=== PATIENT | male | born 1955 | race Caucasian/White ===

== ENCOUNTER 2023-03-22 09:26 | Inpatient (IN) | payer MEDICARE, OTHER ==
[2023-03-22] VITALS (51 sets, daily range): BP systolic 78–170; BP diastolic 58–101; PULSE 56–101; RESP 12–24; TEMP 95.4–100.6; O2SAT 90–99
[~2023-03-22] VITALS: Ht 175.3 cm; Wt 48.6 kg
[2023-03-22] MEDS ORDERED: PROPOFOL 100 ML IV ONE (09:33)
[2023-03-22] MEDS ORDERED: SODIUM CHLORIDE 0.9% 1,200 ML IV ONE (10:00)
[2023-03-22] MEDS ORDERED: ROCURONIUM 10MG/ML 10ML VIAL IV ONE (10:00)
[2023-03-22] MEDS ORDERED: PIPERACILLIN-TAZO 4.5GM 100 ML IV ONE (10:00)
[2023-03-22] MEDS ORDERED: ETOMIDATE (2MG/ML) 20ML VIAL IV ONE (10:00)
[2023-03-22] MEDS ORDERED: VANCOMYCIN 1GM/250ML 250 ML IV ONE (10:00)
[2023-03-22 10:43] LABS: Eosinophils # (auto) 0 10 ^3/uL (0-0.8); Hemoglobin 12.1 g/dL (13.5-17.5); Lymphocytes # (auto) 0.2 10 ^3/uL (0.4-5.4)
[2023-03-22 10:45] LABS: Basophils # (auto) 0.2 10 ^3/uL (0-0.2); Basophils % (auto) 0.9 % (0.0-2.0); Eosinophils % (auto) 0.1 % (0.0-7.0); Mean Corpuscular Hemoglobin 28.8 pg (28.0-32.0); Mean Corpuscular Hgb Conc. 31.9 g/dL (32.0-36.0); Mean Corpuscular Volume 90.4 fL (80.0-100.0); Monocytes # (auto) 1.2 10 ^3/uL (0-1.3); Monocytes % (auto) 5.6 % (0.0-12.0); Neutrophils # (auto) 20.6 10 ^3/uL (1.6-8.6); Neutrophils % (auto) 92.4 % (37.0-80.0); Red Blood Cells 4.21 10^6/uL (4.5-5.90); Red Cell Distribution Width 13.9 % (11.8-14.3); White Blood Cell 22.2 10^3/uL (4.4-10.8)
[2023-03-22] MEDS ORDERED: ONDANSETRON HCL 4 MG/2 ML VIAL IV PRN (10:45)
[2023-03-22] MEDS ORDERED: SODIUM CHLORIDE 0.9% 1,000 ML IV SCH (10:45)
[2023-03-22] MEDS ORDERED: DEXTROSE (50%) 50ML SYRG IV PRN (10:45)
[2023-03-22] MEDS: D5W/SOD CHL 0.2% 1,000 ML IV SCH (10:45)
[2023-03-22 10:49] LABS: Urine Bacteria MOD /hpf (None Seen); Urine Blood 1+ /uL (Negative); Urine Clarity HAZY (Clear); Urine Color Yellow (Yellow); Urine Protein, UAD 1+ (Negative); Urine Specific Gravity 1.017 (1.001-1.035); Urine Urobilinogen Normal (Negative); Urine WBC 20 /hpf (0 - 3)
[2023-03-22] MEDS: ACCU-CHEK COMFORT CURVE STRIP VI SCH ×12 (11:02→22:10)
[2023-03-22] MEDS: ENOXAPARIN SOD 30 MG/0.3 ML SYRINGE SC SCH (11:11)
[2023-03-22] MEDS: PROPOFOL 100 ML IV SCH (11:15)
[2023-03-22 11:21] LABS: Base Excess 16.9 mmol/L (-2.0-2.0)
[2023-03-22 11:45] LABS: Amphetamine Screen, Urine Neg (NEGATIVE); Barbiturate Scree,Urine Neg (NEGATIVE); Benzodiazephine Screen, Urine Neg (NEGATIVE); Cannabinoid Screen, Urine Pos (NEGATIVE); Cocaine Screen, Urine Neg (NEGATIVE); Opiate Scree,Urine Neg (NEGATIVE); Phencyclidine Screen, Urine Neg (NEGATIVE)
[2023-03-22] MEDS ORDERED: IPRATROPIUM BROM 0.5 MG/2.5ML INH SOL NEB SCH (12:00)
[2023-03-22] MEDS ORDERED: DexAMETHasone SOD PHOS 4 MG/1ML SDV INJ IV SCH (12:00)
[2023-03-22 12:05] LABS: Lactic Acid w/Reflex 4.3 mmol/L (0.4-2.0)
[2023-03-22] MEDS: NOREPINEPHRINE 8 MG/250ML KIT 250 ML IV SCH (13:00)
[2023-03-22 13:01] LABS: INR 1.13 (0.9-1.15); Prothrombin Time 11.8 sec (9.3-11.8)
[2023-03-22] MEDS ORDERED: NOREPINEPHRINE 8 MG/250ML KIT 250 ML IV ONE (13:04)
[2023-03-22 13:23] LABS: Alanine Aminotransferase 522 U/L (7-40); Albumin 3.8 g/dL (3.2-4.8); Alkaline Phosphatase 99 U/L (46-116); Aspartate Aminotransferase 927 U/L (13-40); BUN/Creatinine Ratio 34.1 (10.0-20.0); Bilirubin, Total 1.3 mg/dL (0.2-1.0); Blood Urea Nitrogen 15 mg/dL (9-23); Calcium 9.3 mg/dL (8.5-10.1); Chloride 88 mmol/L (98-107); Glucose 118 mg/dL (74-106); Potassium 5.3 mmol/L (3.5-5.1); Sodium 139 mmol/L (136-145); Total Protein 6.9 g/dL (5.7-8.2)
[2023-03-22 13:35] LABS: Anion Gap 10.99999 (5-15)
[2023-03-22] MEDS: IPRATROPIUM BROM 0.5 MG/2.5ML INH SOL NEB SCH ×4 (13:45→22:08)
[2023-03-22 13:51] LABS: Carbon Dioxide > 40 mmol/L (20-30)
[2023-03-22] MEDS: methylPREDNISolone SOD SUCC 125 MG/2 ML VL IV SCH ×2 (14:00→21:06)
[2023-03-22] MEDS: fentaNYL Drip 2500mCg/250mlNS 250 ML IV SCH (14:12)
[2023-03-22] MEDS: MIDAZOLAM DRIP 50 mg/50mL 50 ML IV SCH ×2 (14:12→22:46)
[2023-03-22 14:21] LABS: Alanine Aminotransferase 487 U/L (7-40); Albumin 3.1 g/dL (3.2-4.8); Alkaline Phosphatase 80 U/L (46-116); Aspartate Aminotransferase 761 U/L (13-40); Bilirubin, Total 0.9 mg/dL (0.2-1.0); Blood Urea Nitrogen 18 mg/dL (9-23); Chloride 90 mmol/L (98-107); Glucose 152 mg/dL (74-106); Potassium 4.6 mmol/L (3.5-5.1); Sodium 138 mmol/L (136-145); Total Protein 5.6 g/dL (5.7-8.2)
[2023-03-22 14:26] LABS: Anion Gap 7.99999 (5-15); Carbon Dioxide > 40.0 mmol/L (20-30)
[2023-03-22] MEDS: ALBUTEROL SULF 2.5 MG/0.5ML(0.5%) NEB SOLN NEB SCH ×3 (14:33→22:08)
[2023-03-22 15:07] LABS: Base Excess 22.7 mmol/L (-2.0-2.0)
[2023-03-22] MEDS: PIPERACILLIN-TAZOB 3.375GM 100 ML IV SCH (18:29)
[2023-03-23] VITALS (105 sets, daily range): BP systolic 109–167; BP diastolic 67–104; PULSE 62–111; RESP 20–25; TEMP 96.8–99.5; O2SAT 90–99
[2023-03-23] MEDS: D5W/SOD CHL 0.2% 1,000 ML IV SCH ×2 (00:05→14:55)
[2023-03-23] MEDS: ACCU-CHEK COMFORT CURVE STRIP VI SCH ×10 (00:11→21:17)
[2023-03-23] MEDS: PIPERACILLIN-TAZOB 3.375GM 100 ML IV SCH ×3 (01:57→18:34)
[2023-03-23] MEDS: IPRATROPIUM BROM 0.5 MG/2.5ML INH SOL NEB SCH ×6 (02:37→22:17)
[2023-03-23] MEDS: ALBUTEROL SULF 2.5 MG/0.5ML(0.5%) NEB SOLN NEB SCH ×6 (02:37→22:17)
[2023-03-23 04:29] LABS: Hematocrit 37.1 % (41.0-53.0); Hemoglobin 11.9 g/dL (13.5-17.5); Mean Corpuscular Hgb Conc. 32.2 g/dL (32.0-36.0); Mean Corpuscular Volume 89.9 fL (80.0-100.0); Red Blood Cells 4.12 10^6/uL (4.5-5.90); Red Cell Distribution Width 13.9 % (11.8-14.3); White Blood Cell 16.5 10^3/uL (4.4-10.8)
[2023-03-23 04:44] LABS: Basophils % (manual) 0 (0.0-2.0); Blast Cells 0; Eosinophils % (manual) 0 (0-7); Metamyelocytes % 0; Myelocytes % 0; Promyelocytes % 0; Reactive Lymphocytes 0
[2023-03-23 04:47] LABS: Alanine Aminotransferase 302 U/L (7-40); Albumin 3.4 g/dL (3.2-4.8); Alkaline Phosphatase 74 U/L (46-116); Aspartate Aminotransferase 379 U/L (13-40); BUN/Creatinine Ratio 33.3 (10.0-20.0); Blood Urea Nitrogen 21 mg/dL (9-23); Calcium 9.3 mg/dL (8.7-10.4); Chloride 91 mmol/L (98-107); Glucose 124 mg/dL (74-106); Potassium 3.5 mmol/L (3.5-5.1); Sodium 137 mmol/L (136-145)
[2023-03-23 04:48] LABS: Bilirubin, Total 1.6 mg/dL (0.2-1.0)
[2023-03-23 04:54] LABS: Anion Gap 5.99999 (5-15)
[2023-03-23 04:56] LABS: Carbon Dioxide > 40.0 mmol/L (20-30)
[2023-03-23] MEDS: methylPREDNISolone SOD SUCC 125 MG/2 ML VL IV SCH ×3 (05:55→21:17)
[2023-03-23] MEDS ORDERED: DEXTROSE (50%) 50ML SYRG IV PRN (06:30)
[2023-03-23] MEDS: InsuLIN REG 1unit/0.01ml Soln (100units/ml) SC SCH ×4 (07:00→21:26)
[2023-03-23 07:51] LABS: Base Excess 17.2 mmol/L (-2.0-2.0)
[2023-03-23 08:14] LABS: Band Neutrophils % (manual) 1; Lymphocytes % (manual) 2 (10.0-50.0); Monocytes % (manual) 4 (0-12)
[2023-03-23 08:16] LABS: Platelet Estimate Adequate
[2023-03-23] MEDS: MIDAZOLAM DRIP 50 mg/50mL 50 ML IV SCH (10:55)
[2023-03-23] MEDS: ENOXAPARIN SOD 30 MG/0.3 ML SYRINGE SC SCH (10:58)
[2023-03-23] MEDS: PANTOPRAZOLE 40 MG/10 ML VIAL INJ IV SCH (10:59)
[2023-03-23] MEDS: PROPOFOL 100 ML IV SCH (11:15)
[2023-03-23] MEDS: NOREPINEPHRINE 8 MG/250ML KIT 250 ML IV SCH (13:00)
[2023-03-23] MEDS: fentaNYL Drip 2500mCg/250mlNS 250 ML IV SCH (14:00)
[2023-03-24] VITALS (111 sets, daily range): BP systolic 103–180; BP diastolic 64–107; PULSE 51–95; RESP 16–21; TEMP 96.8–99.7; O2SAT 91–100
[2023-03-24] MEDS: PIPERACILLIN-TAZOB 3.375GM 100 ML IV SCH ×3 (01:53→17:46)
[2023-03-24] MEDS: D5W/SOD CHL 0.2% 1,000 ML IV SCH ×2 (02:14→16:05)
[2023-03-24] MEDS: IPRATROPIUM BROM 0.5 MG/2.5ML INH SOL NEB SCH ×6 (02:18→22:21)
[2023-03-24] MEDS: ALBUTEROL SULF 2.5 MG/0.5ML(0.5%) NEB SOLN NEB SCH ×6 (02:18→22:21)
[2023-03-24 04:09] LABS: Basophils # (auto) 0 10 ^3/uL (0-0.2); Eosinophils # (auto) 0 10 ^3/uL (0-0.8); Hematocrit 32.2 % (41.0-53.0); Hemoglobin 10.6 g/dL (13.5-17.5); Lymphocytes # (auto) 0.2 10 ^3/uL (0.4-5.4); Lymphocytes % (auto) 1.1 % (10.0-50.0); Mean Corpuscular Hemoglobin 28.8 pg (28.0-32.0); Mean Corpuscular Volume 87.1 fL (80.0-100.0); Monocytes # (auto) 0.7 10 ^3/uL (0-1.3); Monocytes % (auto) 4.1 % (0.0-12.0); Neutrophils # (auto) 16.6 10 ^3/uL (1.6-8.6); Neutrophils % (auto) 94.8 % (37.0-80.0); Red Cell Distribution Width 13.9 % (11.8-14.3); White Blood Cell 17.5 10^3/uL (4.4-10.8)
[2023-03-24 04:11] LABS: Chloride 90 mmol/L (98-107); Sodium 135 mmol/L (136-145)
[2023-03-24 04:12] LABS: Calcium 9.4 mg/dL (8.7-10.4)
[2023-03-24 04:18] LABS: BUN/Creatinine Ratio 38.7 (10.0-20.0); Blood Urea Nitrogen 24 mg/dL (9-23); Glucose 135 mg/dL (74-106)
[2023-03-24 04:32] LABS: Anion Gap 4.99999 (5-15); Carbon Dioxide > 40.0 mmol/L (20-30); Potassium 2.9 mmol/L (3.5-5.1)
[2023-03-24] MEDS: ACCU-CHEK COMFORT CURVE STRIP VI SCH ×4 (06:03→21:47)
[2023-03-24] MEDS: POTASSIUM CHL 20MEQ/100ML 100 ML IV SCH ×5 (06:03→21:47)
[2023-03-24] MEDS: methylPREDNISolone SOD SUCC 125 MG/2 ML VL IV SCH ×3 (06:03→21:47)
[2023-03-24] MEDS: InsuLIN REG 1unit/0.01ml Soln (100units/ml) SC SCH ×4 (06:32→22:00)
[2023-03-24 08:19] LABS: Base Excess 16.3 mmol/L (-2.0-2.0)
[2023-03-24] MEDS: ENOXAPARIN SOD 30 MG/0.3 ML SYRINGE SC SCH (10:27)
[2023-03-24] MEDS: PANTOPRAZOLE 40 MG/10 ML VIAL INJ IV SCH (10:27)
[2023-03-24] MEDS: PROPOFOL 100 ML IV SCH (11:15)
[2023-03-24] MEDS: NOREPINEPHRINE 8 MG/250ML KIT 250 ML IV SCH (13:00)
[2023-03-24] MEDS: fentaNYL Drip 2500mCg/250mlNS 250 ML IV SCH (14:00)
[2023-03-24] MEDS: MIDAZOLAM DRIP 50 mg/50mL 50 ML IV SCH ×2 (14:11→21:47)
[2023-03-24 16:16] LABS: Magnesium 1.8 mg/dL (1.6-2.6)
[2023-03-24] MEDS ORDERED: Jevity 1.2 Cal/Fiber 1 Liter GT SCH (19:15)
[2023-03-25] VITALS (103 sets, daily range): BP systolic 94–178; BP diastolic 64–109; PULSE 52–105; RESP 15–32; TEMP 97–99; O2SAT 91–100
[2023-03-25] MEDS: fentaNYL Drip 2500mCg/250mlNS 250 ML IV SCH (00:47)
[2023-03-25] MEDS: PIPERACILLIN-TAZOB 3.375GM 100 ML IV SCH ×3 (01:58→18:01)
[2023-03-25] MEDS: ALBUTEROL SULF 2.5 MG/0.5ML(0.5%) NEB SOLN NEB SCH ×6 (02:14→22:09)
[2023-03-25] MEDS: IPRATROPIUM BROM 0.5 MG/2.5ML INH SOL NEB SCH ×6 (02:14→22:08)
[2023-03-25 04:19] LABS: Calcium 9.3 mg/dL (8.7-10.4); Chloride 96 mmol/L (98-107); Potassium 3.3 mmol/L (3.5-5.1); Sodium 136 mmol/L (136-145)
[2023-03-25 04:24] LABS: BUN/Creatinine Ratio 31.4 (10.0-20.0); Blood Urea Nitrogen 16 mg/dL (9-23); Glucose 106 mg/dL (74-106)
[2023-03-25 04:45] LABS: Basophils # (auto) 0 10 ^3/uL (0-0.2); Basophils % (auto) 0.1 % (0.0-2.0); Eosinophils # (auto) 0 10 ^3/uL (0-0.8); Eosinophils % (auto) 0.1 % (0.0-7.0); Hematocrit 33.9 % (41.0-53.0); Hemoglobin 10.9 g/dL (13.5-17.5); Lymphocytes # (auto) 0.2 10 ^3/uL (0.4-5.4); Lymphocytes % (auto) 1.1 % (10.0-50.0); Mean Corpuscular Hemoglobin 27.9 pg (28.0-32.0); Mean Corpuscular Hgb Conc. 32.3 g/dL (32.0-36.0); Mean Corpuscular Volume 86.7 fL (80.0-100.0); Monocytes # (auto) 0.6 10 ^3/uL (0-1.3); Monocytes % (auto) 3.3 % (0.0-12.0); Neutrophils # (auto) 17.6 10 ^3/uL (1.6-8.6); Neutrophils % (auto) 95.4 % (37.0-80.0); Red Blood Cells 3.91 10^6/uL (4.5-5.90); Red Cell Distribution Width 13.9 % (11.8-14.3); White Blood Cell 18.4 10^3/uL (4.4-10.8)
[2023-03-25] MEDS: methylPREDNISolone SOD SUCC 125 MG/2 ML VL IV SCH (06:01)
[2023-03-25] MEDS: MIDAZOLAM DRIP 50 mg/50mL 50 ML IV SCH ×3 (06:02→20:17)
[2023-03-25] MEDS: ACCU-CHEK COMFORT CURVE STRIP VI SCH ×4 (06:02→22:24)
[2023-03-25] MEDS: InsuLIN REG 1unit/0.01ml Soln (100units/ml) SC SCH ×4 (06:19→22:00)
[2023-03-25 07:06] LABS: RPR Non Reactive (Non Reactive)
[2023-03-25 07:49] LABS: Base Excess 12.9 mmol/L (-2.0-2.0)
[2023-03-25] MEDS: PANTOPRAZOLE 40 MG/10 ML VIAL INJ IV SCH (10:14)
[2023-03-25] MEDS: ENOXAPARIN SOD 30 MG/0.3 ML SYRINGE SC SCH (10:14)
[2023-03-25] MEDS: POTASSIUM CHL 20MEQ/100ML 100 ML IV SCH ×2 (10:19→12:20)
[2023-03-25] MEDS: MAGNESIUM SULFATE 1GM/100ML 100 ML IV SCH ×2 (10:24→11:17)
[2023-03-25] MEDS ORDERED: HEPARIN DRIP/D5W 100UNITS/ML 250 ML IV SCH (10:30)
[2023-03-25] MEDS ORDERED: HEPARIN SODIUM (PORCINE) 5000 UNITS/ML 1ML VIAL IV ONE (10:30)
[2023-03-25] MEDS: PROPOFOL 100 ML IV SCH (11:15)
[2023-03-25 11:36] LABS: Hematocrit 34.8 % (41.0-53.0); Hemoglobin 11.2 g/dL (13.5-17.5); Mean Corpuscular Hemoglobin 28.3 pg (28.0-32.0); Mean Corpuscular Hgb Conc. 32.3 g/dL (32.0-36.0); Mean Corpuscular Volume 87.7 fL (80.0-100.0); Red Blood Cells 3.96 10^6/uL (4.5-5.90); White Blood Cell 18.4 10^3/uL (4.4-10.8)
[2023-03-25 11:44] LABS: INR 1.09 (0.9-1.15); Partial Thromboplastin Time 27.5 SEC (24.5-34.5); Prothrombin Time 11.4 sec (9.3-11.8)
[2023-03-25 12:14] LABS: Band Neutrophils % (manual) 0; Basophils % (manual) 0 (0.0-2.0); Eosinophils % (manual) 0 (0-7); Lymphocytes % (manual) 0 (10.0-50.0); Metamyelocytes % 0; Myelocytes % 0
[2023-03-25 12:15] LABS: Blast Cells 0; Promyelocytes % 0; Reactive Lymphocytes 0
[2023-03-25] MEDS: NOREPINEPHRINE 8 MG/250ML KIT 250 ML IV SCH (13:00)
[2023-03-25] MEDS ORDERED: ANGIOMAX 250 MG VIAL IV ONE (13:32)
[2023-03-25] MEDS ORDERED: SODIUM CHL 0.9% 0 ML ONE (13:33)
[2023-03-25] MEDS ORDERED: LIDOCAINE 2%HCL (LOCAL ANESTH.) INJ 20ML MDV ONE (13:37)
[2023-03-25] MEDS ORDERED: IODIXANOL 320MG/ML 100ML BTL IV ONE (13:37)
[2023-03-25] MEDS ORDERED: hydrALAZINE HCL 20 MG/ML VL ONE (14:32)
[2023-03-25 14:43] LABS: Monocytes % (manual) 4 (0-12); Platelet Estimate Adequate
[2023-03-25] MEDS: methylPREDNISolone SOD SUCC 40 MG/ML VL IV SCH (22:23)
[2023-03-26] VITALS (108 sets, daily range): BP systolic 86–162; BP diastolic 53–98; PULSE 58–122; RESP 8–26; TEMP 97.2–99.3; O2SAT 90–100
[2023-03-26] MEDS: PIPERACILLIN-TAZOB 3.375GM 100 ML IV SCH ×3 (01:36→17:57)
[2023-03-26] MEDS: IPRATROPIUM BROM 0.5 MG/2.5ML INH SOL NEB SCH ×6 (02:13→23:48)
[2023-03-26] MEDS: ALBUTEROL SULF 2.5 MG/0.5ML(0.5%) NEB SOLN NEB SCH ×6 (02:13→23:48)
[2023-03-26] MEDS: MIDAZOLAM DRIP 50 mg/50mL 50 ML IV SCH ×2 (04:05→18:30)
[2023-03-26] MEDS: fentaNYL Drip 2500mCg/250mlNS 250 ML IV SCH (04:08)
[2023-03-26 04:13] LABS: Hematocrit 34.2 % (41.0-53.0); Hemoglobin 11.1 g/dL (13.5-17.5); Mean Corpuscular Hemoglobin 28.5 pg (28.0-32.0); Mean Corpuscular Hgb Conc. 32.5 g/dL (32.0-36.0); Mean Corpuscular Volume 87.6 fL (80.0-100.0); Red Cell Distribution Width 14.4 % (11.8-14.3); White Blood Cell 17.6 10^3/uL (4.4-10.8)
[2023-03-26 04:26] LABS: Chloride 98 mmol/L (98-107); Potassium 3.5 mmol/L (3.5-5.1); Sodium 137 mmol/L (136-145)
[2023-03-26 04:27] LABS: Anion Gap 3.5 (5-15); Carbon Dioxide 35.5 mmol/L (20-30)
[2023-03-26 04:28] LABS: Calcium 9.2 mg/dL (8.7-10.4)
[2023-03-26 04:30] LABS: Basophils % (manual) 0 (0.0-2.0); Blast Cells 0; Eosinophils % (manual) 0 (0-7); Metamyelocytes % 0; Myelocytes % 0; Promyelocytes % 0; Reactive Lymphocytes 0
[2023-03-26 04:32] LABS: BUN/Creatinine Ratio 36.5 (10.0-20.0); Blood Urea Nitrogen 19 mg/dL (9-23); Glucose 102 mg/dL (74-106)
[2023-03-26 05:54] LABS: Band Neutrophils % (manual) 3; Lymphocytes % (manual) 3 (10.0-50.0); Monocytes % (manual) 2 (0-12)
[2023-03-26 05:56] LABS: Platelet Estimate Adequate
[2023-03-26] MEDS: ACCU-CHEK COMFORT CURVE STRIP VI SCH ×4 (06:08→22:22)
[2023-03-26] MEDS: InsuLIN REG 1unit/0.01ml Soln (100units/ml) SC SCH ×4 (06:08→22:00)
[2023-03-26 08:22] LABS: Base Excess 9.9 mmol/L (-2.0-2.0)
[2023-03-26] MEDS: PANTOPRAZOLE 40 MG/10 ML VIAL INJ IV SCH (09:43)
[2023-03-26] MEDS: methylPREDNISolone SOD SUCC 40 MG/ML VL IV SCH ×2 (09:43→22:21)
[2023-03-26] MEDS: PROPOFOL 100 ML IV SCH (11:15)
[2023-03-26 12:33] LABS: Base Excess 9.7 mmol/L (-2.0-2.0)
[2023-03-26] MEDS: NOREPINEPHRINE 8 MG/250ML KIT 250 ML IV SCH (13:00)
[2023-03-26] MEDS: hydrALAZINE HCL 20 MG/ML VL IV PRN (13:52)
[2023-03-27] VITALS (94 sets, daily range): BP systolic 78–176; BP diastolic 53–131; PULSE 54–120; RESP 10–28; TEMP 97–98.8; O2SAT 87–100
[2023-03-27] MEDS: ALBUTEROL SULF 2.5 MG/0.5ML(0.5%) NEB SOLN NEB SCH ×6 (01:55→22:11)
[2023-03-27] MEDS: IPRATROPIUM BROM 0.5 MG/2.5ML INH SOL NEB SCH ×6 (01:55→22:11)
[2023-03-27] MEDS: PIPERACILLIN-TAZOB 3.375GM 100 ML IV SCH ×2 (02:24→09:27)
[2023-03-27 04:49] LABS: Hematocrit 35.9 % (41.0-53.0); Hemoglobin 11.3 g/dL (13.5-17.5); Mean Corpuscular Hemoglobin 27.7 pg (28.0-32.0); Mean Corpuscular Hgb Conc. 31.6 g/dL (32.0-36.0); Mean Corpuscular Volume 87.8 fL (80.0-100.0); Red Blood Cells 4.09 10^6/uL (4.5-5.90); Red Cell Distribution Width 14.2 % (11.8-14.3); White Blood Cell 20.8 10^3/uL (4.4-10.8)
[2023-03-27 04:51] LABS: Chloride 98 mmol/L (98-107); Potassium 3.4 mmol/L (3.5-5.1); Sodium 138 mmol/L (136-145)
[2023-03-27 04:52] LABS: Anion Gap 4.1 (5-15); Carbon Dioxide 35.9 mmol/L (20-30)
[2023-03-27 04:53] LABS: Calcium 9.1 mg/dL (8.7-10.4)
[2023-03-27 04:57] LABS: Glucose 110 mg/dL (74-106)
[2023-03-27 04:58] LABS: BUN/Creatinine Ratio 16.9 (10.0-20.0); Blood Urea Nitrogen 23 mg/dL (9-23)
[2023-03-27 05:15] LABS: Basophils % (manual) 0 (0.0-2.0); Blast Cells 0; Eosinophils % (manual) 0 (0-7); Metamyelocytes % 0; Myelocytes % 0; Promyelocytes % 0; Reactive Lymphocytes 0
[2023-03-27] MEDS: ACCU-CHEK COMFORT CURVE STRIP VI SCH ×4 (06:14→22:42)
[2023-03-27] MEDS: InsuLIN REG 1unit/0.01ml Soln (100units/ml) SC SCH ×4 (06:14→22:30)
[2023-03-27] MEDS: hydrALAZINE HCL 20 MG/ML VL IV PRN ×2 (07:37→14:53)
[2023-03-27 08:23] LABS: Band Neutrophils % (manual) 3; Lymphocytes % (manual) 2 (10.0-50.0); Monocytes % (manual) 4 (0-12); Platelet Estimate Adequate
[2023-03-27 08:27] LABS: Base Excess 6.8 mmol/L (-2.0-2.0)
[2023-03-27] MEDS: methylPREDNISolone SOD SUCC 40 MG/ML VL IV SCH (09:21)
[2023-03-27] MEDS: PANTOPRAZOLE 40 MG/10 ML VIAL INJ IV SCH (09:30)
[2023-03-27] MEDS: ENOXAPARIN SOD 30 MG/0.3 ML SYRINGE SC SCH (09:44)
[2023-03-27] MEDS: METOPROLOL TARTRATE 25 MG TAB GT SCH ×3 (09:45→22:34)
[2023-03-27] MEDS: POTASSIUM CHL 20MEQ/100ML 100 ML IV SCH ×2 (09:45→14:56)
[2023-03-27 10:00] LABS: Base Excess 7.5 mmol/L (-2.0-2.0)
[2023-03-27] MEDS: PROPOFOL 100 ML IV SCH (11:15)
[2023-03-27] MEDS: NOREPINEPHRINE 8 MG/250ML KIT 250 ML IV SCH (13:00)
[2023-03-27] MEDS: fentaNYL Drip 2500mCg/250mlNS 250 ML IV SCH (14:00)
[2023-03-27] MEDS ORDERED: POTASSIUM CHL 20MEQ/100ML 100 ML IV ONE (15:00)
[2023-03-27] MEDS ORDERED: cefTRIAXone 1GM/50ML D5W 50 ML IV ONE (15:00)
[2023-03-28] VITALS (49 sets, daily range): BP systolic 109–171; BP diastolic 59–85; PULSE 53–93; RESP 8–31; TEMP 97.5–98.4; O2SAT 91–100
[2023-03-28] MEDS: ALBUTEROL SULF 2.5 MG/0.5ML(0.5%) NEB SOLN NEB SCH ×6 (02:13→22:38)
[2023-03-28] MEDS: IPRATROPIUM BROM 0.5 MG/2.5ML INH SOL NEB SCH ×6 (02:14→22:38)
[2023-03-28 04:52] LABS: Hematocrit 36.2 % (41.0-53.0); Hemoglobin 11.6 g/dL (13.5-17.5); Mean Corpuscular Hemoglobin 28.5 pg (28.0-32.0); Mean Corpuscular Hgb Conc. 32.1 g/dL (32.0-36.0); Mean Corpuscular Volume 88.9 fL (80.0-100.0); Red Blood Cells 4.07 10^6/uL (4.5-5.90); Red Cell Distribution Width 14.2 % (11.8-14.3); White Blood Cell 26.8 10^3/uL (4.4-10.8)
[2023-03-28 05:00] LABS: Band Neutrophils % (manual) 0; Basophils % (manual) 0 (0.0-2.0); Blast Cells 0; Eosinophils % (manual) 0 (0-7); Metamyelocytes % 0; Myelocytes % 0; Promyelocytes % 0; Reactive Lymphocytes 0
[2023-03-28 05:29] LABS: Chloride 101 mmol/L (98-107); Potassium 3.8 mmol/L (3.5-5.1); Sodium 140 mmol/L (136-145)
[2023-03-28 05:30] LABS: Anion Gap 2.3 (5-15); Calcium 9.1 mg/dL (8.5-10.1); Carbon Dioxide 36.7 mmol/L (20-30)
[2023-03-28 05:35] LABS: Blood Urea Nitrogen 25 mg/dL (9-23); Glucose 79 mg/dL (74-106)
[2023-03-28] MEDS: ACCU-CHEK COMFORT CURVE STRIP VI SCH ×2 (06:55→08:44)
[2023-03-28] MEDS: InsuLIN REG 1unit/0.01ml Soln (100units/ml) SC SCH (06:55)
[2023-03-28] MEDS: PROPOFOL 100 ML IV SCH (08:35)
[2023-03-28] MEDS: NOREPINEPHRINE 8 MG/250ML KIT 250 ML IV SCH (08:35)
[2023-03-28] MEDS: MIDAZOLAM DRIP 50 mg/50mL 50 ML IV SCH (08:35)
[2023-03-28] MEDS: fentaNYL Drip 2500mCg/250mlNS 250 ML IV SCH (08:35)
[2023-03-28] MEDS: ENOXAPARIN SOD 30 MG/0.3 ML SYRINGE SC SCH (08:42)
[2023-03-28] MEDS: cefTRIAXone 1GM/50ML D5W 50 ML IV SCH (08:43)
[2023-03-28] MEDS: PANTOPRAZOLE 40 MG/10 ML VIAL INJ IV SCH (08:43)
[2023-03-28] MEDS: methylPREDNISolone SOD SUCC 40 MG/ML VL IV SCH (08:43)
[2023-03-28] MEDS: METOPROLOL TARTRATE 25 MG TAB GT SCH (08:44)
[2023-03-28] MEDS: LOSARTAN POTASSIUM 50 MG TAB PO SCH (09:47)
[2023-03-28] MEDS: NICOTINE 14 MG/24HR TOPICAL PATCH TD SCH (09:51)
[2023-03-28] MEDS ORDERED: DOCUSATE SOD 100 MG CAP PO PRN (10:00)
[2023-03-28 10:22] LABS: Lymphocytes % (manual) 6 (10.0-50.0); Monocytes % (manual) 8 (0-12)
[2023-03-28 10:23] LABS: Platelet Estimate Adequate
[2023-03-29] VITALS (31 sets, daily range): BP systolic 127–183; BP diastolic 73–113; PULSE 65–114; RESP 17–34; TEMP 98–98.9; O2SAT 92–100
[2023-03-29] MEDS: ALBUTEROL SULF 2.5 MG/0.5ML(0.5%) NEB SOLN NEB SCH ×6 (02:16→21:52)
[2023-03-29] MEDS: IPRATROPIUM BROM 0.5 MG/2.5ML INH SOL NEB SCH ×6 (02:16→21:52)
[2023-03-29 05:33] LABS: Chloride 100 mmol/L (98-107); Potassium 4.5 mmol/L (3.5-5.1); Sodium 139 mmol/L (136-145)
[2023-03-29 05:34] LABS: Anion Gap 0.7 (5-15); Calcium 8.7 mg/dL (8.5-10.1); Carbon Dioxide 38.3 mmol/L (20-30)
[2023-03-29 05:35] LABS: Hematocrit 36.6 % (41.0-53.0); Hemoglobin 11.7 g/dL (13.5-17.5); Mean Corpuscular Hemoglobin 28.2 pg (28.0-32.0); Mean Corpuscular Hgb Conc. 31.9 g/dL (32.0-36.0); Mean Corpuscular Volume 88.4 fL (80.0-100.0); Red Blood Cells 4.14 10^6/uL (4.5-5.90); Red Cell Distribution Width 14.2 % (11.8-14.3); White Blood Cell 27.7 10^3/uL (4.4-10.8)
[2023-03-29 05:39] LABS: BUN/Creatinine Ratio 39.7 (10.0-20.0); Blood Urea Nitrogen 23 mg/dL (9-23); Glucose 96 mg/dL (74-106)
[2023-03-29 06:59] LABS: Band Neutrophils % (manual) 0
[2023-03-29 07:00] LABS: Basophils % (manual) 0 (0.0-2.0); Blast Cells 0; Myelocytes % 0; Promyelocytes % 0; Reactive Lymphocytes 0
[2023-03-29] MEDS: methylPREDNISolone SOD SUCC 40 MG/ML VL IV SCH (07:49)
[2023-03-29] MEDS: PANTOPRAZOLE 40 MG/10 ML VIAL INJ IV SCH (07:49)
[2023-03-29] MEDS: cefTRIAXone 1GM/50ML D5W 50 ML IV SCH (07:50)
[2023-03-29] MEDS: LOSARTAN POTASSIUM 50 MG TAB PO SCH (07:50)
[2023-03-29] MEDS: ENOXAPARIN SOD 30 MG/0.3 ML SYRINGE SC SCH (07:50)
[2023-03-29] MEDS: NICOTINE 14 MG/24HR TOPICAL PATCH TD SCH (09:45)
[2023-03-29 10:45] LABS: Eosinophils % (manual) 2 (0-7); Lymphocytes % (manual) 1 (10.0-50.0); Metamyelocytes % 1; Monocytes % (manual) 6 (0-12)
[2023-03-29 10:46] LABS: Platelet Estimate Adequate
[2023-03-29] MEDS: ALPRAZolam 0.25 MG TAB PO PRN (14:12)
[2023-03-29] MEDS: dilTIAZem HCL 60 MG TAB PO SCH ×2 (14:12→21:47)
[2023-03-30] VITALS (19 sets, daily range): BP systolic 100–168; BP diastolic 71–86; PULSE 61–106; RESP 16–18; TEMP 97.9–98.8; O2SAT 91–100
[2023-03-30] MEDS: ALBUTEROL SULF 2.5 MG/0.5ML(0.5%) NEB SOLN NEB SCH ×6 (01:55→22:10)
[2023-03-30] MEDS: IPRATROPIUM BROM 0.5 MG/2.5ML INH SOL NEB SCH ×6 (01:55→22:10)
[2023-03-30] MEDS: dilTIAZem HCL 60 MG TAB PO SCH ×3 (05:37→23:17)
[2023-03-30] MEDS: PANTOPRAZOLE 40 MG/10 ML VIAL INJ IV SCH (09:57)
[2023-03-30] MEDS: ENOXAPARIN SOD 30 MG/0.3 ML SYRINGE SC SCH (09:57)
[2023-03-30] MEDS: ALPRAZolam 0.25 MG TAB PO PRN (09:58)
[2023-03-30] MEDS: LOSARTAN POTASSIUM 50 MG TAB PO SCH (09:58)
[2023-03-30] MEDS: cefTRIAXone 1GM/50ML D5W 50 ML IV SCH (09:58)
[2023-03-30] MEDS: NICOTINE 14 MG/24HR TOPICAL PATCH TD SCH (09:58)
[2023-03-30] MEDS: methylPREDNISolone SOD SUCC 40 MG/ML VL IV SCH (09:59)
[2023-03-30] MEDS: Ensure Enlive Strawberry 8oz Bottle PO SCH (18:19)
[2023-03-30] MEDS: hydrALAZINE HCL 20 MG/ML VL IV PRN (23:17)
[2023-03-31] VITALS (16 sets, daily range): BP systolic 109–182; BP diastolic 62–83; PULSE 65–119; RESP 16–24; TEMP 97.9–98.8; O2SAT 93–100
[2023-03-31] MEDS: ALPRAZolam 0.25 MG TAB PO PRN ×2 (00:30→13:15)
[2023-03-31] MEDS ORDERED: ACETAMINOPHEN 325 MG TAB PO PRN (02:45)
[2023-03-31] MEDS: hydrALAZINE HCL 20 MG/ML VL IV PRN (05:44)
[2023-03-31] MEDS: dilTIAZem HCL 60 MG TAB PO SCH ×3 (05:54→22:00)
[2023-03-31] MEDS: IPRATROPIUM BROM 0.5 MG/2.5ML INH SOL NEB SCH ×6 (06:00→22:30)
[2023-03-31 07:05] LABS: Alanine Aminotransferase 48 U/L (7-40); Albumin 3.4 g/dL (3.2-4.8); Alkaline Phosphatase 66 U/L (46-116); Anion Gap 2.5 (5-15); Aspartate Aminotransferase 16 U/L (13-40); BUN/Creatinine Ratio 26.7 (10.0-20.0); Bilirubin, Total 0.5 mg/dL (0.2-1.0); Blood Urea Nitrogen 12 mg/dL (9-23); Calcium 8.9 mg/dL (8.7-10.4); Carbon Dioxide 39.5 mmol/L (20-30); Chloride 96 mmol/L (98-107); Glucose 75 mg/dL (74-106); Potassium 4.4 mmol/L (3.5-5.1); Sodium 138 mmol/L (136-145); Total Protein 5.5 g/dL (5.7-8.2)
[2023-03-31] MEDS: ALBUTEROL SULF 2.5 MG/0.5ML(0.5%) NEB SOLN NEB SCH ×5 (07:07→22:30)
[2023-03-31] MEDS: Ensure Enlive Strawberry 8oz Bottle PO SCH ×3 (07:26→17:36)
[2023-03-31] MEDS: cefTRIAXone 1GM/50ML D5W 50 ML IV SCH (09:15)
[2023-03-31] MEDS: ENOXAPARIN SOD 30 MG/0.3 ML SYRINGE SC SCH (09:15)
[2023-03-31] MEDS: LOSARTAN POTASSIUM 50 MG TAB PO SCH (09:15)
[2023-03-31] MEDS: NICOTINE 14 MG/24HR TOPICAL PATCH TD SCH (09:15)
[2023-03-31] MEDS: methylPREDNISolone SOD SUCC 40 MG/ML VL IV SCH (09:16)
[2023-03-31] MEDS: PANTOPRAZOLE 40 MG/10 ML VIAL INJ IV SCH (09:16)
[2023-04-01] VITALS (8 sets, daily range): BP systolic 129–159; BP diastolic 68–90; PULSE 70–98; RESP 17–20; TEMP 97.6–98.3; O2SAT 91–99
[2023-04-01] MEDS: ALPRAZolam 0.25 MG TAB PO PRN ×2 (00:14→13:54)
[2023-04-01] MEDS: ALBUTEROL SULF 2.5 MG/0.5ML(0.5%) NEB SOLN NEB SCH ×5 (02:00→14:28)
[2023-04-01] MEDS: IPRATROPIUM BROM 0.5 MG/2.5ML INH SOL NEB SCH ×5 (02:00→14:29)
[2023-04-01] MEDS: hydrALAZINE HCL 20 MG/ML VL IV PRN (06:06)
[2023-04-01] MEDS: dilTIAZem HCL 60 MG TAB PO SCH ×2 (06:07→14:00)
[2023-04-01] MEDS: Ensure Enlive Strawberry 8oz Bottle PO SCH ×2 (08:00→12:00)
[2023-04-01] MEDS: PANTOPRAZOLE 40 MG/10 ML VIAL INJ IV SCH (10:00)
[2023-04-01] MEDS: methylPREDNISolone SOD SUCC 40 MG/ML VL IV SCH (10:00)
[2023-04-01] MEDS: ENOXAPARIN SOD 30 MG/0.3 ML SYRINGE SC SCH (10:00)
[2023-04-01] MEDS: cefTRIAXone 1GM/50ML D5W 50 ML IV SCH (10:00)
[2023-04-01] MEDS: LOSARTAN POTASSIUM 50 MG TAB PO SCH (10:01)
[2023-04-01] MEDS: NICOTINE 14 MG/24HR TOPICAL PATCH TD SCH (10:01)
== END 2023-04-01 15:47 | DRG 870 ==
LOC: EDBD 09:26 → ER 09:26 → TELE 10:53 → ICU WEST 11:31 → DOU IN ICU 03-27 17:53 → TELE-WESTW 03-29 16:57
PROVIDERS: ADMIT Nurse Practitioner Family; ATTEND Nurse Practitioner Acute Care
PROC: 5A1955Z Respiratory Ventilation, Greater than 96 Consecutive Hours (ICD-10-PCS; principal; 2023-03-22)
PROC: 0BH17EZ Insertion of Endotracheal Airway into Trachea, Via Natural or Artificial Opening (ICD-10-PCS; 2023-03-22)
PROC: 05HM33Z Insertion of Infusion Device into Right Internal Jugular Vein, Percutaneous Approach (ICD-10-PCS; 2023-03-22)
PROC: B543ZZA Ultrasonography of Right Jugular Veins, Guidance (ICD-10-PCS; 2023-03-22)
PROC: B41DYZZ Fluoroscopy of Aorta and Bilateral Lower Extremity Arteries using Other Contrast (ICD-10-PCS; 2023-03-25)
DX: A41.9 Sepsis, unspecified organism (principal); E43 Unspecified severe protein-calorie malnutrition; R65.21 Severe sepsis with septic shock; J18.9 Pneumonia, unspecified organism; J96.22 Acute and chronic respiratory failure with hypercapnia; G93.41 Metabolic encephalopathy; N17.0 Acute kidney failure with tubular necrosis; J96.21 Acute and chronic respiratory failure with hypoxia; J44.1 Chronic obstructive pulmonary disease with (acute) exacerbation; N30.00 Acute cystitis without hematuria; E87.20 Acidosis, unspecified; J44.0 Chronic obstructive pulmonary disease with (acute) lower respiratory infection; R64 Cachexia; I31.39 Other pericardial effusion (noninflammatory); Z68.1 Body mass index [BMI] 19.9 or less, adult; D64.9 Anemia, unspecified; Z66 Do not resuscitate; E16.2 Hypoglycemia, unspecified; D75.839 Thrombocytosis, unspecified; I71.40 Abdominal aortic aneurysm, without rupture, unspecified; B96.1 Klebsiella pneumoniae [K. pneumoniae] as the cause of diseases classified elsewhere; I51.3 Intracardiac thrombosis, not elsewhere classified; L89.159 Pressure ulcer of sacral region, unspecified stage; R74.01 Elevation of levels of liver transaminase levels; N30.90 Cystitis, unspecified without hematuria; F17.200 Nicotine dependence, unspecified, uncomplicated
CPT/HCPCS: 31500; 36415; 36600; 70450; 71045; 75625; 75716; 76705; 76937; 80048; 80053; 80307; 80320; 81001; 82140; 82805; 82962; 83605; 83735; 84132; 84443; 84484; 85007; 85025; 85027; 85610; 85730; 86592; 87040; 87070; 87081; 87086; 87088; 87186; 87205; 92610; 93005; 93306; 93886; 93926; 94002; 94003; 94640; 96365; 97110; 97116; 97163; 97530; 99152; 99291; C9113; G0378; J0696; J2250; J2543; J2704; J3480; Q9967